=== PATIENT | female | born 1980 | race Caucasian/White ===

== ENCOUNTER 2020-01-26 01:31 | Observation (INO) ==
[2020-01-26] MEDS ORDERED: 0.9 % Sodium Chloride 1,000 ML IVC ONE (01:52)
[2020-01-26] MEDS ORDERED: Isovue-370 500 ML BOTTLE IVP ONE (02:28)
[2020-01-26] MEDS ORDERED: Ondansetron 4 MG/2 ML VIAL IVP ONE (02:29)
[2020-01-26] MEDS ORDERED: *HR* HYDROmorphone (PF) 1 MG/ML SYRINGE IVP ONE ×2 (02:29→06:52)
[2020-01-26 02:37] LABS: Basophils % 0.2 %; Hematocrit 38.5 % (35.3-44.9); Immature Granulocytes % 0.4 % (0-4); Lymphocytes # 3.8 K/mcL (0.6-4.6); Lymphocytes % 27.7 %; Mean Corpuscular HGB Conc 31.2 g/dL (31.6-35.5); Mean Corpuscular Hemoglobin 26.4 pg (28.0-33.3); Mean Corpuscular Volume 84.8 fL (83.0-100.0); Mean Platelet Volume 9.9 fL (9.4-12.4); Monocytes # 0.9 K/mcL (0.0-1.3); Monocytes % 6.4 %; Neutrophils # 8.8 K/mcL (1.6-8.9); Platelet Count 285 K/mcL (140-400); Red Blood Count 4.54 M/mcL (3.82-4.97); Red Cell Distribution Width 14.1 % (11.5-14.5); Segmented Neutrophils % 65.3 %; White Blood Count 13.5 K/mcL (4.3-11.1)
[2020-01-26 02:54] LABS: Alanine Aminotransferase 23 Units/L (7-52); Albumin 4.3 g/dL (3.5-5.7); Albumin/Globulin Ratio 1.6 (1.1-2.2); Alkaline Phosphatase 54 Units/L (34-104); Aspartate Amino Transferase 22 Units/L (13-39); BUN/Creatinine Ratio 13 (6-26); Bilirubin,Direct 0.1 mg/dL (0.0-0.2); Bilirubin,Indirect 0.3 mg/dL (0.0-1.0); Bilirubin,Total 0.4 mg/dL (0.3-1.0); Blood Urea Nitrogen 10 mg/dL (6-20); Calcium 9.5 mg/dL (8.6-10.3); Carbon Dioxide 21 mEq/L (23-29); Chloride 103 mEq/L (98-107); Globulin 2.7 g/dL (2.4-3.5); Glucose 123 mg/dL (70-105); Lipase 20 Units/L (11-82); Osmolality,Calculated 282 (280-300); Potassium 3.8 mEq/L (3.5-5.1); Sodium 136 mEq/L (136-145); eGFR For African Americans > 60 (> 60); eGFR For Non-African Americans > 60 (> 60)
[2020-01-26 03:14] LABS: Bilirubin,Urine Negative (Negative); Blood,Urine Negative (Negative); Clarity,Urine Clear (Clear); Color,Urine Colorless (Yellow); Glucose,Urine (UA) Normal (Normal); Ketones,Urine Negative (Negative); Leukocyte Esterase,Urine Negative (Negative); Nitrite,Urine Negative (Negative); Protein,Urine Negative (Neg-Trace); Specific Gravity,Urine 1.008 (1.010-1.025); Urobilinogen,Urine Normal (Normal)
[2020-01-26] MEDS ORDERED: Ringers Solution, Lactated 1,000 ML IVC SCH (10:45)
[2020-01-26] MEDS ORDERED: Ondansetron 4 MG/2 ML VIAL IVP PRN ×2 (10:48→13:09)
[2020-01-26] MEDS ORDERED: Ketorolac 30 MG/ML VIAL IVP PRN (10:48)
[2020-01-26] MEDS ORDERED: Acetaminophen IV 1,000 MG/100 ML INFUS..BTL IVPB ONE (10:48)
[2020-01-26] MEDS ORDERED: *HR* Metoprolol 5 MG/5 ML VIAL IVP SCH (12:00)
[2020-01-26] MEDS ORDERED: Ringers Solution, Lactated 500 ML IVC SCH (13:15)
[2020-01-26] MEDS: Ketorolac 30 MG/ML VIAL IVP PRN (13:34)
[2020-01-26] MEDS: MetroNIDAZOLE 500 MG/100 ML 500 MG/100 ML BAG IVPB SCH ×2 (15:48→23:30)
[2020-01-26] MEDS ORDERED: MetroNIDAZOLE 500 MG/100 ML 500 MG/100 ML BAG IVPB SCH (16:00)
[2020-01-26] MEDS ORDERED: Piperacillin/Tazobactam 3.375 GM in 0.9 % Sodium Chloride Mini Bag 100 ML IVPB SCH (16:00)
[2020-01-26] MEDS: Piperacillin/Tazobactam 3.375 GM in 0.9 % Sodium Chloride Mini Bag 100 ML IVPB SCH (16:10)
[2020-01-26] MEDS: Ringers Solution, Lactated 1,000 ML IVC SCH (17:21)
[2020-01-26] MEDS: Acetaminophen IV 1,000 MG/100 ML INFUS..BTL IVPB SCH ×2 (17:22→23:00)
[2020-01-26] MEDS: Famotidine 20 MG/2 ML VIAL IVP SCH (17:55)
[2020-01-26] MEDS ORDERED: Famotidine 20 MG/2 ML VIAL IVP SCH (18:00)
[2020-01-26] MEDS: *HR* Metoprolol 5 MG/5 ML VIAL IVP SCH (18:05)
[2020-01-27] MEDS: Ketorolac 30 MG/ML VIAL IVP PRN (00:42)
[2020-01-27] MEDS: Piperacillin/Tazobactam 3.375 GM in 0.9 % Sodium Chloride Mini Bag 100 ML IVPB SCH ×2 (00:47→08:55)
[2020-01-27] MEDS: *HR* Metoprolol 5 MG/5 ML VIAL IVP SCH ×3 (00:55→13:31)
[2020-01-27] MEDS: Acetaminophen IV 1,000 MG/100 ML INFUS..BTL IVPB SCH ×2 (04:54→13:24)
[2020-01-27] MEDS: Famotidine 20 MG/2 ML VIAL IVP SCH (05:23)
[2020-01-27] MEDS: MetroNIDAZOLE 500 MG/100 ML 500 MG/100 ML BAG IVPB SCH ×2 (07:44→15:32)
[2020-01-27] MEDS: Ringers Solution, Lactated 1,000 ML IVC SCH (09:02)
[2020-01-27 09:26] LABS: Basophils % 0.4 %; Hematocrit 36.6 % (35.3-44.9); Hemoglobin 11.4 g/dL (11.5-15.4); Immature Granulocytes % 0.3 % (0-4); Lymphocytes # 2.2 K/mcL (0.6-4.6); Mean Corpuscular HGB Conc 31.1 g/dL (31.6-35.5); Mean Corpuscular Hemoglobin 27.5 pg (28.0-33.3); Mean Corpuscular Volume 88.4 fL (83.0-100.0); Mean Platelet Volume 10.1 fL (9.4-12.4); Monocytes # 0.5 K/mcL (0.0-1.3); Monocytes % 6.8 %; Neutrophils # 4.1 K/mcL (1.6-8.9); Platelet Count 242 K/mcL (140-400); Red Blood Count 4.14 M/mcL (3.82-4.97); Red Cell Distribution Width 14.5 % (11.5-14.5); Segmented Neutrophils % 60.5 %; White Blood Count 6.8 K/mcL (4.3-11.1)
[2020-01-27 15:18] VITALS: BP 139/85
== END 2020-01-27 17:22 | disposition home or self-care (01) ==
LOC: 1NENUOBS 01:31 → EMEROOARM 01:31 → 1NENUOBS 12:32
PROVIDERS: ADMIT Obstetrics & Gynecology; ATTEND Obstetrics & Gynecology